=== PATIENT | male | born 2000 | race African-American/Black ===

== ENCOUNTER 2021-05-06 09:30 | Emergency (ER) | payer OTHER ==
[~2021-05-06] VITALS: Ht 188 cm; Wt 75.2 kg
[2021-05-06] MEDS ORDERED: ACETAMINOPHEN 325 MG TAB PO ONE (12:45)
[2021-05-06 12:57] VITALS: BP 118/64
== END 2021-05-06 12:58 | disposition home or self-care (01) ==
LOC: M ED 09:30 → EDSEX 09:30 → M ED 12:58
DX: S09.90XA Unspecified injury of head, initial encounter (principal); V40.5XXA Car driver injured in collision with pedestrian or animal in traffic accident, initial encounter; Y92.9 Unspecified place or not applicable; Y93.9 Activity, unspecified; Y99.9 Unspecified external cause status; F17.290 Nicotine dependence, other tobacco product, uncomplicated